=== PATIENT | female | born 1995 | race Caucasian/White ===

== ENCOUNTER 2017-02-09 16:29 | Emergency (ER) | payer OTHER ==
[2017-02-09] MEDS ORDERED: ONDANSETRON 4 MG/2 ML VIAL IVP STA (16:54)
[2017-02-09] MEDS ORDERED: KETOROLAC 60 MG/2 ML VIAL IVP STA (16:54)
[2017-02-09] MEDS ORDERED: SODIUM CHLORIDE 0.9% 1,000 ML IV ONE (16:54)
[2017-02-09] MEDS ORDERED: KETOROLAC 30 MG/ML VIAL ONE (16:55)
[2017-02-09] MEDS ORDERED: ONDANSETRON 4 MG/2 ML VIAL ONE (16:55)
[2017-02-09] MEDS ORDERED: IOPAMIDOL-300 100 ML VIAL IVP ONE (18:29)
[2017-02-09] MEDS ORDERED: ONDANSETRON ODT 4 MG Prepack 2 TL STA (19:04)
[2017-02-09] MEDS ORDERED: ONDANSETRON ODT 4 MG Prepack 2 TL ONE (19:10)
== END 2017-02-09 19:16 | disposition home or self-care (01) ==
DX: K52.9 Noninfective gastroenteritis and colitis, unspecified (principal); R10.84 Generalized abdominal pain
CPT/HCPCS: 36415; 74177; 80053; 81003; 81025; 83690; 85025; 96374; 96375; 99284; Q9967